=== PATIENT | male | born 1990 | race African-American/Black ===

== ENCOUNTER 2021-01-04 18:19 | Emergency (ER) | payer OTHER, SELFPAY ==
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
--- NOTE | ~2021-01-04 | XR_ITS ---
EXAMINATION: XR chest 2V DATE: 01/04/2021 20:06 INDICATION: Chest pain TECHNIQUE: PA and lateral views of the chest are obtained. COMPARISON: None available FINDINGS: The lungs are free of acute opacities. There is no pleural effusion or pneumothorax. The ca rdiomediastinal silhouette is normal. The visualized bones and soft tissues are unremarkable. IMPRESSION: 1. No acute cardiopulmonary abnormality. Reviewed, dictated and finalized at location A.
[2021-01-04 19:24] VITALS: BP 152/76; PULSE 83; RESP 18; TEMP 36.6; O2SAT 99
[2021-01-04 20:49] VITALS: BP 153/82; PULSE 79; RESP 20; TEMP 37.1; O2SAT 100
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
== END 2021-01-04 21:22 | disposition home or self-care (01) ==
PROVIDERS: Emergency Provider Emergency Medicine
DX: S20.219A Contusion of unspecified front wall of thorax, initial encounter (principal); S49.91XA Unspecified injury of right shoulder and upper arm, initial encounter; V49.40XA Driver injured in collision with unspecified motor vehicles in traffic accident, initial encounter
CPT/HCPCS: 71046; 73030; 99284